=== PATIENT | female | born 1970 | race Caucasian/White ===

== ENCOUNTER 2018-09-02 08:53 | Emergency (ER) | payer MEDICAID ==
[~2018-09-02] VITALS: Ht 160 cm; Wt 77.6 kg
[2018-09-02 09:22] VITALS: Ht 160 cm; Wt 77.6 kg
[2018-09-02 11:33] VITALS: BP 108/60
== END 2018-09-02 11:33 | disposition home or self-care (01) ==
LOC: ED 08:53
DX: S43.491A Other sprain of right shoulder joint, initial encounter (principal); Z88.5 Allergy status to narcotic agent; W10.8XXA Fall (on) (from) other stairs and steps, initial encounter; Y93.01 Activity, walking, marching and hiking; Y92.89 Other specified places as the place of occurrence of the external cause; Y99.8 Other external cause status
CPT/HCPCS: J1885

== ENCOUNTER 2020-02-19 12:35 | Emergency (ER) | payer OTHER ==
[~2020-02-19] VITALS: Ht 160 cm; Wt 79.8 kg
[2020-02-19 12:45] VITALS: Ht 160 cm; Wt 79.8 kg
[2020-02-19 14:45] VITALS: BP 111/62
== END 2020-02-19 14:45 | disposition home or self-care (01) ==
LOC: ED 12:35
DX: J32.9 Chronic sinusitis, unspecified (principal); R51.9 Headache, unspecified; Z88.5 Allergy status to narcotic agent
CPT/HCPCS: J1200; J1885; J2405; J2765